=== PATIENT | female | born 1955 ===

== ENCOUNTER 2025-02-23 10:12 | Outpatient (AMB) | payer OTHER, SELFPAY ==
--- OUTSIDE RECORDS SUMMARY | 2025-02-18 15:00 | XMS_ITS | Encounter Summary ---
Author Organization [facility] Address [address] [place] [address] Care Team Providers Care Revenue Cycle Administrator Name Role Phone Doretha Fraga MD Primary Care Provider [phone] Reason for Visit * Consultation (Routine) - Authorized Specialty Diagnoses / Procedures Referred By Jessica juarez Referred To Contact Physical Therapy Diagnoses Chronic pain of both shoulders Doretha Fraga MD [address] [place] [phone] Phone: tel: fax: [address] [phone] Phone: tel: fax: Referral ID Status Reason Start Date Expiration Date Visits Requested Visits Authorized [id number] Authorized Specialty Services Required 01/16/2026 60 60 Encounter Details Date Type Department Care Team (Latest Contact Info) Description 02/18/2025 3:00 PM EST Evaluation [address] [phone] Caio Allen, PT Chronic pain of both shoulders Social History Tobacco Use Types Packs/Day Years Used Date Smoking Tobacco: Never Smokeless Tobacco: Never Alcohol Use Standard Drinks/Week Comments No 0 (1 standard drink = 0.6 oz pur e alcohol) Comments Unknown Sex and Gender Information Value Date Recorded Sex Assigned at Female 04/24/2024 1:52 AM EST Legal Sex Female 8:58 AM EST Gender Identity Female 04/24/2024 1:52 AM EST Sexual Orientation Straight 04/24/2024 1: 52 AM EST documented as of this encounter Progress Notes * Caio Allen, PT - 02/18/2025 3:00 PM EST [facility] - Outpatient PHYSICAL THERAPY EVALUATION Date: 02/18/2025 Visit Number: 1 Patient Name: Keila Gonzales : 1955 Age: 69 y.o. Gender: female Diagnosis: ICD-10-CM ICD-9-CM 1. Chronic pain of both shoulders M25.511 719.41 Ambulatory referral to Physical Therapy and Athletic Training G89.29 338.29 M25.512 Date of Onset/Surgery: 02/18/2025 Referring Provider: Doretha Fraga MD Insurance: Payor: [employer] / Plan: [employer] OPEN ACCESS SELECT / Product Type: *No Product type* / Patient identified by: Caio Allen, PT Language: Speaks and understands Kinyarwanda as preferred language with no aerial photograph interpreter required Chart Reviewed: Yes Medications: Medications Ordered Prior to Encounter[1] Discussed current medications that may impact therapy. Medication list obtained and reviewed. Referto document in medical record. Advised Patient to contact MD with any questions regarding medications and importance of managing medication information. has a past medical history of Allergic rhinitis (07/17/2018), Chronic knee pain (07/19/2017), GERD (gastroesophageal reflux disease) (07/19/2017), Hair loss (09/25/2017), History of migraine with aura (08/20/2015), Irritable bowel syndrome (07/19/2017), Pulmonary nodule (08/20/2015), Vitamin B12 deficiency (07/19/2017), and Vitamin D deficiency (07/19/2017). has a past surgical history that includes Other surgical history and Colonoscopy (02/20/2014). is allergic to naproxen. Precautions: Concurrent Services: No Concurrent Services Previous Medical Care/Therapy: SUBJECTIVE History of Present Illness/Subjective Report: Pt reports left shoulder pain for past 10 months. Onset of right shoulder pain for past month due to decreased use of LUE. Gradual onset, no known mechanism of injury. Pt states she has PMH of RA. To MD, no imaging. Pt received referral to PT to addressB shoulder pain Current Functional Limitations: Reported by Patient B shoulder pain with ADLs, minimal use of RUE and unable to use LUE with morning ADLs. Pt unable to find a comfortable sleep position due to B shoulder pain Is the patient at Risk for Falls: No Pain: Right shoulder 6/10, Left shoulder 10/10 Pain decreases with OTC pain medication, heat Home Environment: no barriers Prior Level of Function: Prior to onset of B shoulder pain pt was independent with ADLs without difficulty OBJECTIVE General Observations/Comments: Right hand dominant Vitals: There were no vitals filed for this visit. General/Functional Assessments/Gait Assessment: Posture: Forward head, rounded shoulders Palpation: TTP B upper trap, levator and throughout Left shoulder musculature Range of Motion: Shoulder PROM Right Left Flexion 165 150 with 5/10 ant shoulder ERP Extension 50 50 Abduction 150 90 with 5/10 ant shoulder ERP IR 65 65 with 5/10 upper arm ERP ER 80 80 with 5/10 upper arm ERP Strength: Shoulder Right Left Flexion 3/5 3-/5 with pain Extension 4/5 4/5 Abduction 3/5 3-/5 with pain IR 4/5 2/5 with pain ER 3+/5 2/5 with pain Elbow Flex 5/5 4/5 with shoulder pain Ext 5/5 5/5 TONE: WNL BUE Sensation: WNL BUE Vestibular: n/t Special Tests: Empty Can Test Positive Left and Speed's Test Positive Left TREATMENT INTERVENTION Modalities: None performed Procedures: None performed ASSESSMENT/Response to Treatment: Keila Gonzales is a 69 y.o. female presenting for outpatient physical therapy evaluation with complaints of B shoulder pain. Significant clinical findings include: decreased ROM and strength of leftshoulder, pain of B shoulders affecting ADLs and sleep pattern. Patients progress may be limited byn/a. Skilled Physical therapy is medically necessary to develop HEP and use of modalities to reducepain with ADL performance. Rehabilitation Potential: Rehab Potential: Condition Has Potential to Improve Motivation for Rehab: Good Support Structure: Good Learning Needs: Were Patient Learning needs assessed: Yes Learning Preferences: Explanation, Demonstration, and Printed Materials Barriers to Learning: No Barriers to Learning Patient Education: [x] Discussed, with patient and/or caregiver, the recommended plan of care/goals, the importance oftherapy and appointment compliance in order to achieve goals in a timely manner. Education provided: Plan of care Education Provided To: Patient utilizing Explanation as mode(s) of education. Response to Education: Verbal Understanding GOALS Goals Addressed This Visit's Progress PT LTGs Pt will increase left shoulder PROM to 75% WNL without pain for improved ADLs Pt will increase left shoulder strength to 3+/5 throughout without pain for improved ADLs Pt will report B shoulder pain no greater than 3/10 with morning ADL performance Pt will be independent with HEP PLAN POC Development/Review: Initial Evaluation; Participants: Patient Skilled Therapy Plan Required: YES- Reasons for Rehab and Medical Necessity -- Reduce Need for Assist with Functional Activity/ADL's/Mobility Planned Therapy Interventions: Kinesiotaping, Manual Therapy, Patient / Family Education, Therapeutic Activity, and Therapeutic Exercise Recommended Consults: none Equipment Recommended: none; Equipment Provided: none Frequency/Duration: 8 visits BILLING TOTAL TREATMENT TIME: 45 Minutes Evaluation Medium Complexity Justification ::: A history of present problem with 1 - 2 personal factors and/or co-morbidities that impact the plan of care, An examination of body systems using standardized tests and measures in addressing a total of 3 or more elements from any of the following bodystructures and functions, activity limitations, and/or participation restrictions, and Clinical decision making of moderate complexity using standardized patient assessment instrument and/or measurable assessment of functional outcome Documentation completed by Caio Allen, [place]CRET[place] [address] [address] Dept: [phone] Dept PATIENT NAME: Keila Gonzales : 1955 Certification: This is to certify that the above named patient, who is under my care, requires skilled Therapy services as described in the above treatment plan. I further certify that the services outlined in this plan are skilled and medically necessary. I have reviewed this plan for rehabilitation services, and I recommend that these services continue to meet the above stated goals and plan. SIGNATURE: DATE Doretha Fraga MD Referring provider [1] Current Outpatient Medications on File Prior to Visit Medication Sig Dispense Refill acetaminophen (TYLENOL) 500 mg tablet Take 1 tablet (500 mg total) by mouth every 6 (six) hours if needed. cholecalciferol (VITAMIN D-3) 50 mcg (2,000 unit) tablet Take 1 tablet (2,000 Units total) by mouth1 (one) time each day. diclofenac (VOLTAREN) 1 % topical gel Apply 1 g topically 4 times daily as needed (pain). dicyclomine (BENTYL) 10 mg capsule Take 1 Capsule by mouth 3 times daily. EPINEPHrine (EPIPEN) 0.3 mg/0.3 mL injection Inject 0.3 mL (0.3 mg total) into the thigh if needed for anaphylaxis. 1 each 0 famotidine (Pepcid) 20 mg tablet Take 1 tablet (20 mg total) by mouth 2 (two) times a day. 60 each 3 ibuprofen (ADVIL,MOTRIN) 600 mg tablet TK 1 T PO TID WITH FOOD loratadine (CLARITIN) 10 mg tablet Take 1 Tablet by mouth daily as needed for Allergies (itching). polyethylene glycol (MIRALAX) 17 gram packet Take 17 g by mouth daily. traMADoL (ULTRAM) 50 mg tablet Take 1 tablet (50 mg total) by mouth every 8 (eight) hours if needed. No current facility-administered medications on file prior to visit. documented in this encounter Plan of Treatment Upcoming Encounters Date Type Department Care Team (Late st Contact Info) Description 03/10/2025 1:30 PM EST Treatment [address] [phone] Masoud Abrams, CHEMICAL ENGINEER 03/12/2025 2:30 PM EST Treatment [address] [phone] Sinan Fine, REG 03/16/2025 1:30 PM EST Treatment [address] [phone] Sinan Fine, CHEMICAL ENGINEER 03/19/2025 1:30 PM EST Treatment [facility] [address] [phone] Caio Allen, PT 03/23/2025 1:30 PM EST Treatment [facility] [address] [phone] Caio Allen, PT 03/26/2025 1:30 PM EST Treatment [facility] [address] [phone] Masoud Abrams, CHEMICAL ENGINEER 03/30/2025 1:30 PM EST Treatment [facility] [address] [phone] Sinan Fine, CHEMICAL ENGINEER 04/02/2025 1:30 PM EST Treatment [facility] [address] [phone] Caio Allen, PT documented as of this encounter Goals Goal Patient Goal Type Associated Problems Recent Progress Patient-Stated? Author PT LTGs General No Caio Allen, PT Note: Pt will increase left shoulder PROM to 75% WNL without pain for improved ADLs Pt will increase left shoulder strength to 3+/5 throughout without pain for improved ADLs Pt will report B shoulder pain no greater than 3/10 with morning ADL performance Pt will be independent with HEP documented as of this encounter Visit Diagnoses Diagnosis Chronic pain of both shoulders documented in this encounter Orders Outpatient Referral Count Last Ordered Date Fir st Ordered Date AMB REFERRAL TO [facility]ICAL [facility] 1 02/18/2025 documented in this encounter Care Teams Revenue Cycle Administrator Relationship Specialty Start Date End Date Doretha Fraga MD [address] [phone] PCP - General Internal Medicine 02/22/18 documented as of this encounter
[2025-02-23 10:15] VITALS: BP 130/78; PULSE 104; O2SAT 98; BMI 25.2
--- NOTE | 2025-02-23 10:15 | A.OFFVIS_ITS ---
Vital Signs 02/23/25 10:15 Height 5 ft Weight 129 lb 2 oz BMI 25.2 BP 130/78 Blood Pressure Location Lt brachial Position Sitting Pulse 104 H Pulse Source Pulse Oximeter Pulse Oximetry (%) 98 Oxygen Delivery Method Room Air Intake Visit Reasons: IA Intake Note: Patient is a new patient, she was referred by her PCP Dr. Fraga from [facility] for inflammatory arthritis/psoriatic arthritis. 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 She has manage her psoriasis with the help of topical agents and cream. For past 7 years she has been having joint pain in the shoulders hands knees and neck. no back pain. She has noticed active synovitis in the knees and hands. She has no numbness and tingling. She also has morning stiffness that last 2 hours. She takes tyelnol arthritis as needed daily. She takes ibuprofen as needed, last dose 3 months ago She states she has been taking cortisone injections sometimes in the knee and sometimes IM depomedrol for generalized joint pain for the past 7 years. Then for 3 years she didnt have any prednsione therapy. Last year she had worsneing joint pain and then she received oral prednsione for 1 week and she felt better. She has not had a baseline DEXA scan done. She has seen Dr Hernandez who suspects she has Psoriatic arthrits / inflammatory arthritis. She was offered methotrexate however she declined as she was concerned about the side effects. She has been feeling nauseous, not feeling hungry, 14 pounds of weight loss, she has constipation,no blood in urine or blood in stool, she has been having night sweats. She had a CT chest abdomen and pelvis on 02/02/2025 which showed a 0.3 x 0.5 pulmonary nodule in the right middle lobe. Patient reports that she has known about this. Hepatic steatosis. Otherwise unremarkable exam Her last blood work showed white cell count of 12.9 hemoglobin 10.5 platelets 551 creatinine of 0.46 albumin of 2.6 ferritin of 309, AST ALT within normal limits ROS: no photosensitivy, no oral uclers, no miscarraige no blood clots,no dry eyes no dry mouth FH: SHE REPORTS HER MOTHER ALSO had rheumatoid arthritis PHYSICAL EXAM General: Comfortable CVS: RRR Respiratory: clear to auscultation bilaterally. Good respiratory effort Skin: She has psoriatic lesions seen on both elbows. MSK: Patient is able to make a fist bilaterally. Patient does not have any active synovitis in the joints. She has nontender DIPs. No [place] or also notes noted. She has some tenderness in the PIPs 3rd 4th 5th digits bilaterally. On exam, her hands look slightly osteopenic. 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 She has normal range of motion of the right shoulder however left shoulder has limited range of motion, painful on overhead abduction. She has limited range of motion of the hips bilaterally. Crepitus noted in both the knees on flexion and extension. Fibromyalgia tender points positive, particularly intra scapular, behind the knees, behind the elbows. Fibromyalgia tender points fibromyalgia tender points PFSH Medical History (Updated 02/23/25 @ 12:33 by Elizabeth Styles MD) Pulmonary nodule Chronic knee pain GERD (gastroesophageal reflux disease) IBS (irritable bowel syndrome) Vitamin B deficiency Vitamin D deficiency Hair loss Allergic rhinitis Migraine with aura Psoriatic arthritis Surgical History History of thyroglossal duct cyst removal Hx of colonoscopy Family History Sister Thyroid cancer Social History (Updated 02/23/25 @ 10:27 by Joanna Argueta CMA) Alcohol intake: current Alcohol intake frequency: does not drink Patient Tobacco Use Status: Never used Tobacco Physical Exam Vital Signs: Last Vital Signs Pulse 104 H 02/23/25 10:15 BP 130/78 02/23/25 10:15 Pulse Ox 98 02/23/25 10:15 Oxygen Delivery Method Room Air 02/23/25 10:15 BMI result Body Mass Index 25.2 Assessment & Plan Assessment & Plan (1) Joint pain: Code(s): M25.50 - Pain in unspecified joint Category: Medical Qualifiers: Joint pain location: unspecified Qualified Code(s): M25.50 - Pain in unspecified joint (2) Psoriasis: Code(s): L40.9 - Psoriasis, unspecified Category: Medical (3) On prednisone therapy: Code(s): Z79.52 - termite control 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 Based on her history, physical exam her joint pain may be inflammatory in nature, likely inflammatory arthritis/psoriatic arthritis. She may also have a component of fibromyalgia that is superimposed given her positive tender points on exam. I will obtain blood work, including ESR CRP RF CCP thyroid function studies, along with hepatitis-B C profile and QuantiFERON to further classify inflammatory arthritis and in preparation to start any DMARD if needed. I will also obtain imaging bilateral hand x-rays, shoulder x-rays and knee x-rays. As patient has had series of prednisone courses I will also obtain a DEXA scan I had a discussion with her regarding the use of methotrexate for inflammatory arthritis versus prednisone. It seems to me that patient is very hesitant to use methotrexate and is leaning more towards prednisone as she is scared of the side effects. I did reinforce that prednisone has more side effect profile as compared to methotrexate and is relatively safe to use with regular monitoring. Handouts were provided for fibromyalgia, DMARD and psoriatic arthritis. Regarding fibromyalgia Discussed management of fibromyalgia with patient. Is a noninflammatory, non-autoimmune central afferent processing disorder leading to a diffuse pain syndrome. I suggested that patient try to address her underlying psychiatric issues, anxiety/depression. Try to follow sleep hygiene practices. Patient would benefit from increased physical activity, either through formal physical therapy or by joining a gym. Advised patient that she should start activity slowly and increase as tolerated. Consider low-impact exercises such as walking, swimming, aqua therapy stretching, yoga. With regards to the limited left shoulder motion and left shoulder pain, she is due to start physical therapy in the shoulder beginning March. Follow up in 3 weeks to discuss blood work and results Orders: Orders XR Shoulder Nicolas min 2V Today M25.50 - Pain in unspecified joint XR Hand Nicolas 2V Today M25.50 - Pain in unspecified joint C Reactive Protein Today R76.0 - Raised antibody titer Rheumatoid Factor Today R76.0 - Raised antibody titer Thyroid Stimulating Hormone Today R76.0 - Raised antibody titer Protein Electrophoresis, Serum Today M25.50 - Pain in unspecified joint XR Knee Nicolas 1or 2V Today M25.50 - Pain in unspecified joint Erythrocyte Sedimentation Rate Today R76.0 - Raised antibody titer Cyclic Citrullinated Peptide Today R76.0 - Raised antibody titer Thyroglobulin Antibodies Today R76.0 - Raised antibody titer Thyroid Peroxidase Antibodies Today R76.0 - Raised antibody titer Immunofixation Pnl, Serum Today L40.9 - Psoriasis, unspecified, M25.50 - Pain in unspecified joint XR DEXA axial skeleton Today M25.50 - Pain in unspecified joint, Z79.52 - termite control representative (current) use of systemic steroids Hepatitis B,C Profile Today Z79.899 - Other terminal system operator (current) drug therapy Quantiferon TB Gold Plus 1 Today Z79.899 - Other terminal system operator (current) drug therapy Coding Level of Care Code New Pt Level 4 (10560) Diagnoses Arthralgia, unspecified joint M25.50 Joint pain location: unspecified Psoriasis L40.9 On prednisone therapy Z79.52
--- OUTSIDE RECORDS SUMMARY | 2025-02-23 12:19 | XMS_ITS | Clinical Summary ---
Author Organization [facility] Address [address] [place] [phone] Phone Care Team Providers Care White Sourer Name Role Phone Doretha Fraga MD Primary Care Provider [phone] Allergies Active Allergy Reactions Criticality Noted Date Comments Naproxen 02/15/2012 Medications acetaminophen (TYLENOL) 500 mg tablet Take 1 tablet (500 mg total) by mouth every 6 (six) hours if needed. 4 Active cholecalciferol (VITAMIN D-3) 50 mcg (2,000 unit) tablet Take 1 tablet (2,000 Units total) by mouth 1 (one) time each day. 3 Active diclofenac (VOLTAREN) 1 % topical gel Apply 1 g topically 4 times daily as needed (pain). 4 Active dicyclomine (BENTYL) 10 mg capsule Take 1 Capsule by mouth 3 times daily. 4 Active loratadine (CLARITIN) 10 mg tablet Take 1 Tablet by mouth daily as needed for Allergies (itching). 4 Active traMADoL (ULTRAM) 50 mg tablet Take 1 tablet (50 mg total) by mouth every 8 (eight) hours if needed. 4 Active polyethylene glycol (MIRALAX) 17 gram packet Take 17 g by mouth daily. 2 Active ibuprofen (ADVIL,MOTRIN) 600 mg tablet TK 1 T PO TID WITH FOOD 9 Active EPINEPHrine (EPIPEN) 0.3 mg/0.3 mL injection Inject 0.3 mL (0.3 mg total) into the thigh if needed for anaphylaxis. 1 each 5 Active famotidine (Pepcid) 20 mg tablet Take 1 tablet (20 mg total) by mouth 2 (two) times a day. 60 each 3 5 Active Active Problems Problem Noted Date Diagnosed Date Psoriatic arthritis 01/16/2025 Migraine with aura 08/19/2024 Allergic rhinitis 07/17/2018 Hair loss 09/25/2017 Vitamin D deficiency 07/19/2017 Vitamin B12 deficiency 07/19/2017 Irritable bowel syndrome 07/19/2017 GERD (gastroesophageal reflux disease) 8 Chronic knee pain 07/19/2017 Pulmonary nodule 08/20/2015 Encounters Date Type Department Care Team Description 02/18/2025 3:00 PM EST Evaluation [facility] - [employer] 175 [facility] [address] [place] [phone] Caio Allen, PT Chronic pain of both shoulders 02/04/2025 Telephone Internal Medicine - [employer] [address] [facility] [address] [place] [phone] Doretha Fraga MD 01/22/2025 1:56 PM EST - 01/22/2025 11:59 PM EST Hospital Encounter CT Scan - [address] [phone] Other fatigue; Weight loss; Appetite loss; Nausea and vomiting, unspecified vomiting type Discharge Disposition: Home or Self Care 01/20/2025 Results Follow-Up Internal Medicine - [address] [place] [phone] Doretha Fraga MD 01/19/2025 10:05 AM EST Lab Draw Station - [address] [place] [address] [address] [place] [phone] Anemia, unspecified type; Psoriatic arthritis (CMS/HCC V24, CMS/HCC V28); Adult general medical examination; Other fatigue; Weight loss; Appetite loss 01/16/2025 11:30 AM EST Office Visit Internal Medicine - [address] [place] [address] Doretha Fraga MD Adult general medical examination (Primary Dx); Psoriatic arthritis (CMS/HCC V24, CMS/HCC V28); Other fatigue; Weight loss; Appetite loss; Nausea and vomiting, unspecified vomiting type; Chronic pain of both shoulders; Postmenopausal state; Inflammatory arthritis from Last 3 Months Surgical History Surgery Date Site/Laterality Comments OTHER SURGICAL HISTORY PROCEDURE: HISTORY OTHER; COMMENT: thyroglossal duct excision COLONOSCOPY 02/20/2014 PROCEDURE: HISTORICAL COLONOSCOPY; COMMENT: repeat 10 years Medical History Medical History Date Comments Chronic knee pain 07/19/2017 DX:Chronic kne e pain GERD (gastroesophageal reflux disease) 07/19/2017 DX:GERD (gastroesophageal reflux disease) Hair loss 09/25/2017 DX:Hair loss History of migraine with aura 08/20/2015 DX :History of migraine with aura Irritable bowel syndrome 07/19/2017 DX:Irri table bowel syndrome Pulmonary nodule 08/20/2015 DX:Pulmonary no dule Vitamin B12 deficiency 07/19/2017 DX:Vitami n B12 deficiency Vitamin D deficiency 07/19/2017 DX:Vitamin D deficiency Allergic rhinitis 07/17/2018 DX:Allergic rh initis Family History Medical History Relation Name Comments Other: thyroid cancer Sister Relation Name Status Comments Sister Social History Tobacco Use Types Packs/Day Years [...] Orientation Straight 04/24/2024 1: 52 AM EST Last Filed Vital Signs Vital Sign Reading Time Taken Comments Blood Pressure 109/70 01/16/2025 11:33 AM EST Pulse 102 01/16/2025 11:33 AM EST Temperature 36.4 C (97.5 F) 01/16/2025 11:33 AM EST Respiratory Rate 18 01/16/2025 11:33 AM EST Oxygen Saturation 97% 01/16/2025 11:33 AM EST Inhaled Oxygen Concentration - - Weight 56.2 kg (124 lb) 01/16/2025 11:33 AM EST Height 152.4 cm (5') 01/16/2025 11:33 AM EST Body Mass Index 24.22 01/16/2025 11:33 AM EST Plan of Treatment Upcoming Encounters Date Type Department Care Team (Late st Contact Info) Description 03/10/2025 1:30 PM EST Treatment [address] [phone] Masoud Abrams, SENIOR ENGINEERING ASSOCIATE 03/12/2025 2:30 PM EST Treatment [address] [phone] Sinan Fine, SENIOR ENGINEERING ASSOCIATE 03/16/2025 1:30 PM EST Treatment [address] [phone] Sinan Fine, SENIOR ENGINEERING ASSOCIATE 03/19/2025 1:30 PM EST Treatment [address] [phone] Caio Allen, PT 03/23/2025 1:30 PM EST Treatment [address] [phone] Caio Allen, PT 03/26/2025 1:30 PM EST Treatment [address] [phone] Masoud Abrams, SENIOR ENGINEERING ASSOCIATE 03/30/2025 1:30 PM EST Treatment [address] [phone] Sinan Fine, SENIOR ENGINEERING ASSOCIATE 04/02/2025 1:30 PM EST Treatment [address] [phone] Caio Allen, PT Health Maintenance Due Date Last Done Comments DTaP,Tdap,and Td Vaccines (1 - Tdap) 1976 Pneumococcal Vaccine: 50+ Years (1 of 1 - PCV) 2007 Zoster Vaccines (1 of 2) 2007 Hepatitis C Screening 02/11/2022 Osteoporosis Screening (Bone Density Screening) 02/11/2022 Social Influencers of Health Screening 02/11/2022 Falls Risk Assessment 2022 Depression Screening 03/05/2024 COVID-19 Vaccine (3 - 2024-2 6 season) 2024 08/27/2020, 08/06/2020 Influenza Vaccine (#1) 2024 3, 11/25/2019 Breast Cancer Screening 02/05/2027 02/06/20, 05/11/2023 Colorectal Cancer Screening: Colonoscopy 01/05/2030 01/06/2020 Cholesterol Screening (Lipid Panel) 01/19/2030 01/19/2025, 04/12/2023 RSV Immunization Adult Patients (1 - 1-dose 75+ series) 2032 HIB Vaccines Aged Out No longer eligi ble based on patient's age to complete this topic HPV Vaccines Aged Out No longer eligi ble based on patient's age to complete this topic Hepatitis A Vaccines Aged Out No long er eligible based on patient's age to complete this topic Hepatitis B Vaccines Aged Out No long er eligible based on patient's age to complete this topic IPV Vaccines Aged Out No longer eligi ble based on patient's age to complete this topic MMR Vaccines Aged Out No longer eligi ble based on patient's age to complete this topic Meningococcal ACWY Vaccine Aged Out N o longer eligible based on patient's age to complete this topic Meningococcal B Vaccine Aged Out No l onger eligible based on patient's age to complete this topic RSV Immunization Patients Under 20 months Aged Out No longer eligible b ased on patient's age to complete this topic Varicella Vaccines Aged Out No longer eligible based on patient's age to complete this topic Goals Goal Patient Goal Type Associated Problems [...] performance Pt will be independent with HEP Procedures Procedure Name Priority Date/Time Associated Diagnosis Comments EXTERNAL MAMMOGRAM REPORT 02/05/2025 EXTERNAL ULTRASOUND REPORT 02/05/2025 CT CHEST/ABDOMEN/PELVIS W CONTRAST Routine 01/22/2025 2:15 PM EST Other fatigue Weight loss Appetite loss Nausea and vomiting, unspecified vomiting type CBC WITH AUTO DIFFERENTIAL Routine 01/19/2025 10:02 AM EST Anemia, unspecified type VITAMIN B12 Routine 01/19/2025 10:02 AM EST Psoriatic arthritis (CMS/HCC V24, CMS/HCC V28) Adult general medical examination Other fatigue Weight loss Appetite loss THYROID STIMULATING HORMONE Routine 01/19/2025 10:02 AM EST Psoriatic arthritis (CMS/HCC V24, CMS/HCC V28) Adult general medical examination Other fatigue Weight loss Appetite loss LIPID PANEL WITH REFLEX TO DIRECT LDL Routine 01/19/2025 10:02 AM EST Psoriatic arthritis (CMS/HCC V24, CMS/HCC V28) Adult general medical examination Other fatigue Weight loss Appetite loss COMPREHENSIVE METABOLIC PANEL Routine 01/19/2025 10:02 AM EST Psoriatic arthritis (CMS/HCC V24, CMS/HCC V28) Adult general medical examination Other fatigue Weight loss Appetite loss HEMOGLOBIN A1C Routine 01/19/2025 10:02 AM EST Psoriatic arthritis (CMS/HCC V24, CMS/HCC V28) Adult general medical examination Other fatigue Weight loss Appetite loss FERRITIN Routine 01/19/2025 10:02 AM EST Anemia, unspecified type CBC AND DIFFERENTIAL Routine 01/19/2025 10:02 AM EST Anemia, unspecified type HM COLONOSCOPY Routine 01/06/2020 from Last 3 Months or Most Recently Relevant to Health Maintenance Results * External Ultrasound Report (02/05/2025) Anatomical Region Laterality Modality Ultrasound us Provider [facility] IMG US PROCEDURES Final Result * External Mammogram Report (02/05/2025) Anatomical Region Laterality Modality [facility]ography [facility] BI PROCEDURES Final Result * CT Chest/Abdomen/Pelvis w Contrast (01/22/2025 2:15 PM EST) Anatomical Region Laterality Modality Body Computed Tomogra phy 02/02/2025 5:37 PM EST Impressions 02/02/2025 5:54 PM EST 0.3 x 0.5 cm pulmonary nodule right middle lobe. Hepatic steatosis. Otherwise, unremarkable exam. No follow-up needed if patient is low-risk. Non-contrast chest CT can be considered in 12 months if patient is high-risk (Per Fleischner Society guidelines). There has been resolution of the raul mesentery seen on the previous study. There has also been resolution of the azygoesophageal recess and right infrahilar lymphadenopathy seen in the previous study. -------- FINAL REPORT -------- Dictated By: Poppy Perez Dictated Date: 02/02/2025 17:37 ET Assigned Physician: Poppy Perez Reviewed and Electronically Signed By: Poppy Perez Signed Date: 02/02/2025 17:54 ET Workstation ID: [id number] Transcribed By: Self Edit Transcribed Date: 02/02/2025 17:37 ET Narrative 02/02/2025 5:[address] CHEST/ABDOMEN/PELVIS W CONTRAST History: Weight loss. Loss of appetite. Procedure: Multiple axial images are obtained from ischial tuberosities to the thoracic inlet. Oral and IV contrast is administered. 100 cc Isovue-370 was administered IV. Prior studies: CT abdomen pelvis 06/10/2020. FINDINGS: CHEST: There is a 0.3 x 0.5 cm pulmonary nodule in the right middle lobe on image 120, and this was partially visualized on the first image of the previous study. There are groundglass opacities in the lower lobes bilaterally, this may represent dependent atelectasis. There is unchanged focal scarring in the lateral right middle lobe. There is no pleural effusion, pericardial effusion, or pneumothorax. There is no mediastinal, hilar, or axillary lymphadenopathy. No lytic or blastic lesions are seen in the bony thorax. ABDOMEN/PELVIS: There is decreased attenuation of the liver compared with the spleen, consistent with fatty infiltration. The kidneys, and spleen are grossly unremarkable. The pancreas is grossly unremarkable in appearance. The gallbladder is present. The gastrointestinal tract is unremarkable. The aorta is normal in caliber. There is mild atherosclerosis. The uterus and ovaries are unremarkable. The bladder is suboptimally distended. There is mild curvature and degenerative change of the spine. Procedure Note Poppy Perez MD - 02/02/2025 CT CHEST/ABDOMEN/PELVIS W CONTRAST History: Weight loss. Loss of appetite. Procedure: Multiple axial images are obtained from ischial tuberosities tothe thoracic inlet. Oral and IV contrast is administered. 100 ccIsovue-370 was administered IV. Prior studies: CT abdomen pelvis 06/10/2020. FINDINGS: CHEST: There is a 0.3 x 0.5 cm pulmonary nodule in the right middle lobeon image 120, and this was partially visualized on the first image of theprevious study. There are groundglass opacities in the lower lobesbilaterally, this may represent dependent atelectasis. There is unchangedfocal scarring in the lateral right middle lobe. There is no pleuraleffusion, pericardial effusion, or pneumothorax. There is no mediastinal,hilar, or axillary lymphadenopathy. No lytic or blastic lesions are seenin the bony thorax. ABDOMEN/PELVIS: There is decreased attenuation of the liver compared withthe spleen, consistent with fatty infiltration. The kidneys, and spleenare grossly unremarkable. The pancreas is grossly unremarkable inappearance. The gallbladder is present. The gastrointestinal tract isunremarkable. The aorta is normal in caliber. There is mildatherosclerosis. The uterus and ovaries are unremarkable. The bladder issuboptimally distended. There is mild curvature and degenerative change ofthe spine. IMPRESSION: 0.3 x 0.5 cm pulmonary nodule right middle lobe. Hepatic steatosis.Otherwise, unremarkable exam. No follow-up needed if patient is low-risk.Non-contrast chest CT can be considered in 12 months if patient ishigh-risk (Per Fleischner Society guidelines). There has been resolution of the raul mesentery seen on the previousstudy. There has also been resolution of the azygoesophageal recess andright infrahilar lymphadenopathy seen in the previous study. -------- FINAL REPORT -------- Dictated By: Poppy Perez Dictated Date: 02/02/2025 17:37 ET Assigned Physician: Poppy Perez Reviewed and Electronically Signed By: Poppy Perez Signed Date: 02/02/2025 17:54 ET Workstation ID: [id number] Transcribed By: Self Edit Transcribed Date: 02/02/2025 17:37 ET us Doretha Fraga MD IMG CT PROCEDURES Final Result * Lipid panel with reflex to direct LDL (01/19/2025 10:02 AM EST) Cholesterol 118 0 - 200 mg/dL LAB CHEMISTRY METHOD 01/19/2025 4:17 PM EST [facility] Triglycerides 67 0 - 150 mg/dL LAB CHEMISTRY METHOD 01/19/2025 4:17 PM [facility] HDL 40 >=40 mg/dL LAB CHEMISTRY METHOD 01/19/2025 4:17 PM EST [facility] LDL Calculated 65 0 - 100 mg/dL LAB CHEMISTRY METHOD 01/19/2025 4:17 PM EST [facility] Comment:Estimated LDL Calcul ated using equation: Total cholesterol - HDL cholesterol - (Triglycerides/5) VLDL Cholesterol Atif 13.4 mg/dL LAB CHEMISTRY METHOD 01/19/2025 4:17 PM [facility] Non HDL Chol. (LDL+VLDL) 78 <145 mg/dL LAB CHEMISTRY METHOD 01/19/2025 4:17 PM [facility] Chol/HDL Ratio 3.0 0.0 - 4.4 LAB CHEMISTRY METHOD 01/19/2025 4:17 PM [facility] Blood Venous blood specimen / Unknown Venipuncture / Unknown 01/19/2025 10:02 AM EST 01/19/2025 10:02 AM EST us Doretha Fraga MD LAB BLOOD ORDERABLES Final Res ult [facility] [address] [place] [address], * (ABNORMAL) CBC auto differential (01/19/2025 10:02 AM EST) [facility] WBC 12.9(H) 4.8 - 10.8 K/mcL LAB HEMETOLOGY METHOD 01/19/2025 2:19 PM [facility] RBC 5.10(H) 3.80 - 4.80 M/mcL LAB HEMETOLOGY METHOD 01/19/2025 2:19 PM [facility] Hemoglobin 10.5(L) 11.5 - 16.0 g/dL LAB HEMETOLOGY METHOD 01/19/2025 2:19 PM [facility] Hematocrit 36.7 35.0 - 47.0 % LAB HEMETOLOGY METHOD 01/19/2025 2:19 PM [facility] MCV 71.5(L) 79.0 - 98.0 FL LAB HEMETOLOGY METHOD 01/19/2025 2:19 PM [facility] MCH 20.5(L) 27.0 - 32.0 pcg LAB HEMETOLOGY METHOD 01/19/2025 2:19 PM [facility] MCHC 28.6(L) 32.0 - 37.0 g/dL LAB HEMETOLOGY METHOD 01/19/2025 2:19 PM [facility] RDW 19.6(H) 11.0 - 15.0 % LAB HEMETOLOGY METHOD 01/19/2025 2:19 PM [facility] Platelets 551(H) 130 - 400 K/mcL LAB HEMETOLOGY METHOD 01/19/2025 2:19 PM [facility] MPV 9.8 7.0 - 11.0 FL LAB HEMETOLOGY METHOD 01/19/2025 2:19 PM [facility] NRBC 0.0 <1.0 % LAB HEMETOLOGY METHOD 01/19/2025 2:19 PM [facility] NRBC Absolute 0.00 <0.10 K/mcL LAB HEMETOLOGY METHOD 01/19/2025 2:19 PM [facility] Neutrophils Relative 65.6 % LAB HEMETOLOGY METHOD 01/19/2025 2:19 PM [facility] Lymphocytes Relative 21.8 % LAB HEMETOLOGY METHOD 01/19/2025 2:19 PM [facility] Monocytes Relative 9.6 % LAB HEMETOLOGY METHOD 01/19/2025 2:19 PM [facility] Eosinophils Relative 1.2 % LAB HEMETOLOGY METHOD 01/19/2025 2:19 PM [facility] Basophils Relative 1.2 % LAB HEMETOLOGY METHOD 01/19/2025 2:19 PM [facility] Immature Granulocytes Relative 0.6 % LAB HEMETOLOGY METHOD 01/19/2025 2:19 PM [facility] Neutrophils Absolute 8.43(H) 1.50 - 7.00 K/mcL LAB HEMETOLOGY METHOD 01/19/2025 2:19 PM [facility] Lymphocytes Absolute 2.80 1.00 - 5.00 K/mcL LAB HEMETOLOGY METHOD 01/19/2025 2:19 PM [facility] Monocytes Absolute 1.24(H) 0.20 - 1.00 K/mcL LAB HEMETOLOGY METHOD 01/19/2025 2:19 PM [facility] Eosinophils Absolute 0.16 0.00 - 0.50 K/mcL LAB HEMETOLOGY METHOD 01/19/2025 2:19 PM [facility] Basophils Absolute 0.16 0.00 - 0.20 K/mcL LAB HEMETOLOGY METHOD 01/19/2025 2:19 PM [facility] Immature Granulocytes Absolute 0.08(H) 0.00 - 0.03 K/mcL LAB HEMETOLOGY METHOD 01/19/2025 2:19 PM EST [facility] Blood Venous blood specimen / Unknown Venipuncture / Unknown 01/19/2025 10:02 AM EST 01/19/2025 10:02 AM EST us Doretha Fraga MD LAB BLOOD ORDERABLES Final Res ult [facility] [address] [place] [address], [place] [phone] * Thyroid stimulating hormone (01/19/2025 10:02 AM EST) Pathologist [facility] [place] TSH 1.82 0.40 - 4.00 mcIU/mL LAB CHEMISTRY METHOD 01/19/2025 4:42 PM EST [facility] Blood Venous blood specimen / Unknown Venipuncture / Unknown 01/19/2025 10:02 AM EST 01/19/2025 10:02 AM EST us Doretha Fraga MD LAB BLOOD ORDERABLES Final Res ult [facility] [address] [place] [address], [place] [phone] * Hemoglobin A1c (01/19/2025 10:02 AM EST) Hemoglobin A1C 6.3 <6.5 % LAB CHEMISTRY METHOD 01/19/2025 9:02 PM EST [facility] Mean Bld Glu Estim. 134 mg/dL LAB CHEMISTRY METHOD 01/19/2025 9:02 PM EST [facility] Blood Venous blood specimen / Unknown Venipuncture / Unknown 01/19/2025 10:02 AM EST 01/19/2025 10:02 AM EST Doretha Fraga MD LAB BLOOD ORDERABLES Final Res ult Performing Organization Address [facility]/ZIP Co de Phone Number [facility] [address] [place] [address], [place] [phone] * (ABNORMAL) Ferritin (01/19/2025 10:02 AM EST) Pathologist [facility] [place] Ferritin 309(H) 8 - 252 ng/mL LAB CHEMISTRY METHOD 01/19/2025 4:17 PM EST [facility] Blood Venous blood specimen / Unknown Venipuncture / Unknown 01/19/2025 10:02 AM EST 01/19/2025 10:02 AM EST Doretha Fraga MD LAB BLOOD ORDERABLES Final Res ult Performing Organization Address [facility] Co de Phone Number [facility] [address] [place] [address], [place] [phone] * Vitamin B12 (01/19/2025 10:02 AM EST) [facility] Vitamin B-12 374 250 - 900 pcg/mL LAB CHEMISTRY METHOD 01/19/2025 4:17 PM EST [facility] Blood Venous blood specimen / Unknown Venipuncture / Unknown 01/19/2025 10:02 AM EST 01/19/2025 10:02 AM EST Doretha Fraga MD LAB BLOOD ORDERABLES Final Res ult Performing Organization Address City/[facility]/ZIP Co de Phone Number [facility] [address] [place] [address], [place] [phone] * (ABNORMAL) Comprehensive metabolic panel (01/19/2025 10:02 AM EST) [facility] Sodium 138 133 - 145 mmol/L LAB CHEMISTRY METHOD 01/19/2025 4:17 PM EST [facility] Potassium 4.5 3.5 - 5.5 mmol/L LAB CHEMISTRY METHOD 01/19/2025 4:17 PM [facility] Chloride 105 96 - 110 mmol/L LAB CHEMISTRY METHOD 01/19/2025 4:17 PM [facility] CO2 27 21 - 32 mmol/L LAB CHEMISTRY METHOD 01/19/2025 4:17 PM [facility] Anion Gap 6 3 - 11 LAB CHEMISTRY METHOD 01/19/2025 4:17 PM [facility] Glucose 96 70 - 100 mg/dL LAB CHEMISTRY METHOD 01/19/2025 4:17 PM [facility] BUN 11 5 - 25 mg/dL LAB CHEMISTRY METHOD 01/19/2025 4:17 PM [facility] Creatinine 0.46(L) 0.50 - 1.10 mg/dL LAB CHEMISTRY METHOD 01/19/2025 4:17 PM [facility] eGFR 105 >=60 mL/min/1. 73m2 LAB CHEMISTRY METHOD 01/19/2025 4:17 PM [facility] Comment:Calculation based on the Chronic Kidney Disease Epidemiology Collaboration (CKD-EPI) equation refit without adjustment for race. BUN/Creatinine Ratio 23.9 LAB CHEMISTRY METHOD 01/19/2025 4:17 PM [facility] Calcium 9.5 8.5 - 10.5 mg/dL LAB CHEMISTRY METHOD 01/19/2025 4:17 PM [facility] AST (SGOT) 18 10 - 42 unit/L LAB CHEMISTRY METHOD 01/19/2025 4:17 PM [facility] ALT (SGPT) 38 10 - 60 unit/L LAB CHEMISTRY METHOD 01/19/2025 4:17 PM [facility] Alkaline Phosphatase 98 42 - 121 unit/L LAB CHEMISTRY METHOD 01/19/2025 4:17 PM [facility] Total Protein 7.5 6.0 - 8.0 g/dL LAB CHEMISTRY METHOD 01/19/2025 4:17 PM [facility] Albumin 2.6(L) 3.2 - 5.0 g/dL LAB CHEMISTRY METHOD 01/19/2025 4:17 PM EST [facility] Total Bilirubin 0.3 0.0 - 1.4 mg/dL LAB CHEMISTRY METHOD 01/19/2025 4:17 PM EST [facility] Blood Venous blood specimen / Unknown Venipuncture / Unknown 01/19/2025 10:02 AM EST 01/19/2025 10:02 AM EST Doretha Fraga MD LAB BLOOD ORDERABLES Final Res ult [facility] [address] [place] [address], [place] [phone] * Colonoscopy (01/06/2020) Colonoscopy No interpretation , abstracted Anatomical Region Laterality Modality Other Historical Provider HEALTH MAINTENANCE Final Result from Last 3 Months or Most Recently Relevant to Health Maintenance Insurance [employer] Care Teams [place] Relationship Specialty Start Date End Date Doretha Fraga MD [address] [phone] PCP - General Internal Medicine 02/22/18
--- OUTSIDE RECORDS SUMMARY | 2025-02-23 12:19 | XMS_ITS | Encounter Summary ---
Author Organization [facility] Address [address] [place] [address] Care Team Providers Care Manager Program Name Role Phone Doretha Fraga MD Primary Care Provider [phone] Encounter Details Date Type Department Care Team (Late st Contact Info) Description 01/20/2025 Results Follow-Up Internal Medicine [facility] 175 [facility] [address] [place] [phone] Doretha Fraga MD [address] [place] [phone] Social History Tobacco Use Types Packs/Day Years [...] AM EST documented as of this encounter Plan of Treatment Upcoming Encounters Date Type Department Care Team (Late st Contact Info) Description 03/10/2025 1:30 PM EST Treatment [facility] [address] [phone] Masoud Abrams, CHIEF AIRLINE RADIO OPERATOR 03/12/2025 2:30 PM EST Treatment [facility] [address] [phone] Sinan Fine, REG 03/16/2025 1:30 PM EST Treatment [facility] [address] [phone] Sinan Fine, CHIEF AIRLINE RADIO OPERATOR 03/19/2025 1:30 PM EST Treatment [facility] [address] [phone] Caio Allen, PT 03/23/2025 1:30 PM EST Treatment [facility] [address] [phone] Caio Allen, PT 03/26/2025 1:30 PM EST Treatment [facility] [address] [phone] Masoud Abrams, CHIEF AIRLINE RADIO OPERATOR 03/30/2025 1:30 PM EST Treatment [facility] [address] [phone] Sinan Fine, CHIEF AIRLINE RADIO OPERATOR 04/02/2025 1:30 PM EST Treatment [facility] [address] [phone] Caio Allen, PT documented as of this encounter Visit Diagnoses Not on filedocumented in this encounter Care Teams Manager Program Relationship Specialty Start Date End Date Doretha Fraga MD [address] [phone] PCP - General Internal Medicine 02/22/18 documented as of this encounter
--- OUTSIDE RECORDS SUMMARY | 2025-02-23 12:19 | XMS_ITS | Patient Health Record ---
Author Organization [facility] Address [address] [place] [address] Care Team Providers Care Warehouse Associate Name Role Phone BETHANIE LEONARD, [facility] Primary Care Provider Unavailab OMAR Anne Unavailable [phone] Allergies Allergen (clinical drug ingredient) Drug/Non Drug Allergy documented on EMR Reaction Allergy Type Onset Date Status naproxen Naprosyn stomach upset Drug Allergy Act chris Reason For Referral No Information Medications Medication SIG (Take, Route, Frequency, Duration) Notes Start Date End Date Status Dicyclomine HCl 10 MG Capsule 2 capsules Orally Three times a day as needed Active Magnesium 200 MG Tablet 1 tab po once daily Active Vitamin B Complex - Tablet 1 tab po once daily Active Ibuprofen 800 MG Tablet 1 tab(s) orally 3 times a day as needed Active Vitamin D 50 MCG (2000 UT) Capsule 1 orally once a day Active Omeprazole 20 MG Capsule Delayed Release 1 cap(s) orally once a day as needed Active Social History Tobacco Use: Social History Observation Description Date Details (start date - stop date) Never Smoker NA - NA Social History Tobacco Use: Social Info Question Answer Notes Smoking Are you a: never smoker Additional Details Category Social Info Options Details 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 alcohol use: no drug use: no Coffee/Tea/Soda: yes 2 cups of coffe e daily, tea daily 2 cups, no soda Marital Status smokers in household no Problems Problem Type SNOMED Code ICD Code Onset Dates Problem Status W/U Status Risk Notes Problem Primary osteoarthritis (713725804) Primary osteoarthritis involving multiple joints (M15.0) Active confirmed Problem Inflammatory arthritis (4031731) Inflammatory arthritis (M19.90) Active confirmed Problem Osteoarthritis of knee (358815404) Primary osteoarthritis of right knee (M17.11) Active confirmed Problem Osteoarthritis of knee (494813476) Primary osteoarthritis of left knee (M17.12) Active confirmed Plan Of Treatment No Information Insurance Providers Payer Name Payer Address Payer Phone Subscriber Number Group Number Insured Name Patient Relationship to Insured Coverage Start Date Coverage End Date [employer] [facility] [address] [place] [address] [id number] ROSITA BENJAMIN Self - patient is the insured 9 Medications Administered Medication Instructions Date of Administration Dosage Notes Triamcinolone Acetonide, mul ti-dose vial, 12/08/2019 60 mg Triamcinolone Acetonide, mul ti-dose vial, 06/08/2020 60 mg Triamcinolone Acetonide, mul ti-dose vial, 12/08/2021 60 mg Medical (General) History Medical History History ICD Code migraines rash osteoarthritis Surgical History Surgery Date(Month/Year) thyroglossal cyst endometrial polyp removal Hospitalization History Reason Date(Month/Year) pain in joints inflammation and high fev [facility] ([facility] 2018
--- OUTSIDE RECORDS SUMMARY | 2025-02-23 12:19 | XMS_ITS | Encounter Summary ---
Author Organization [facility] Address [address] [place] [address] Care Team Providers Care Elevating Grader Operator Name Role Phone Doretha Fraga MD Primary Care Provider [phone] Reason for Referral * Imaging (Routine) - Authorized Specialty Diagnoses / Procedures Referred By Jessica juarez Referred To Contact Radiology Diagnoses Mammogram abnormal Procedures US Breast Limited bilat Doretha Fraga MD [address] [place] [address] Phone: tel: fax: External Performed Referral ID Status Reason Start Date Expiration Date V isits Requested Visits Authorized [id number] Authorized 02/05/2025 02/05/2026 1 1 Reason for Visit * Reason Onset Date Comments Ultrasound order request 02/04/2025 Encounter Details Date Type Department Care Team (Late st Contact Info) Description 02/04/2025 Telephone Internal Medicine - [place] [address] [facility] [address] [place] [address] Doretha Fraga MD [address] [place] [address] Social History Tobacco Use Types Packs/Day [...] as of this encounter Progress Notes * Sherrie Betancur MA - 02/05/2025 8:49 AM EST Order faxed to number provided * Doretha Fraga MD - 02/05/2025 8:14 AM EST Order placed * Jerry Oscar MA - 02/04/2025 10:12 AM EST Please advise patient has appt tomorrow 02/05 needs diagnostic ultrasound of left breast 6 month follow up * Fabiola Lincoln - 02/04/2025 9:18 AM EST [facility] breast [facility] wellness called and stated that the pt has a appt tomorrow for a diagnostic ultrasound of left breast 6 month follow up but they do not have a order for her. Please advise Cb# [phone] documented in this encounter Plan of Treatment Upcoming Encounters Date Type Department Care Team (Late st Contact Info) Description 03/10/2025 1:30 PM EST Treatment [facility] [address] [address] Masoud Abrams, PROBATION COUNSELOR 03/12/2025 2:30 PM EST Treatment [facility] [address] [address] Sinan Fine, REG 03/16/2025 1:30 PM EST Treatment [facility] [address] [phone] Sinan Fine, PROBATION COUNSELOR 03/19/2025 1:30 PM EST Treatment [facility] [address] [phone] Caio Allen, PT 03/23/2025 1:30 PM EST Treatment [facility] [address] [phone] Caio Allen, PT 03/26/2025 1:30 PM EST Treatment [facility] [address] [address] Masoud Abrams, PROBATION COUNSELOR 03/30/2025 1:30 PM EST Treatment [facility] [address] [phone] Sinan Fine, PROBATION COUNSELOR 04/02/2025 1:30 PM EST Treatment [facility] [address] [phone] Caio Allen, PT Scheduled Orders Name Type Priority Associated Diagnoses Orde r Schedule US Breast Limited bilat Imaging Routine Mammogram abnormal Expected: 02/05/2025, Expires: 02/05/2026 documented as of this encounter Visit Diagnoses Diagnosis Mammogram abnormal- Primary Abnormal mammogram, unspecified documented in this encounter Care Teams Elevating Grader Operator Relationship Specialty Start Date End Date Doretha Fraga MD [address] [phone] PCP - General Internal Medicine 02/22/18 documented as of this encounter
== END 2025-02-23 11:34 | disposition home or self-care (01) ==
LOC: HO.RHES 10:12
PROVIDERS: PCP Internal Medicine; Visit Provider Student in an Organized Health Care Education/Training Program
DX: M25.50 Pain in unspecified joint (principal); L40.9 Psoriasis, unspecified; Z79.52 Long term (current) use of systemic steroids
CPT/HCPCS: 99204

== ENCOUNTER 2025-02-23 10:12 | Outpatient (REF) | payer OTHER, SELFPAY ==
[2025-02-23 16:45] LABS: Thyroid Stimulating Hormone 1.02 uIU/mL (0.32-4.0)
[2025-02-24 03:58] LABS: HBS Num1 19.56 mIU/mL (0-7.99); HBc Num1 0.42 S/CO (0.00-0.79); HBsAGNum1 0.52 S/CO (0.00-0.99); Hepatitis B Surface Antigen Negative (Negative); ~HepC Num1 0.16 S/CO (0.00-0.79); ~Hepatitis B Surface Antibody REACTIVE (Nonreactive); ~Hepatitis C Antibody Nonreactive (Nonreactive)
[2025-02-25 06:20] LABS: Quantiferon TB Gold Plus 1 NEGATIVE (NEGATIVE); TB Test (QFT) Mitogen -Nil 7.31 IU/mL; TB Test (QFT) Nil 0.03 IU/mL; TB Test (QFT) Plus TB1 -Nil 0.00 IU/mL; TB Test (QFT) Plus TB2 -Nil 0.00 IU/mL
== END 2025-02-23 10:13 | disposition home or self-care (01) ==
LOC: HO.HKASLDS 10:12
PROVIDERS: PCP Internal Medicine; Visit Provider Student in an Organized Health Care Education/Training Program
DX: M25.50 Pain in unspecified joint (principal); L40.9 Psoriasis, unspecified; Z79.52 Long term (current) use of systemic steroids; R76.0 Raised antibody titer; Z79.899 Other long term (current) drug therapy; Z01.84 Encounter for antibody response examination; Z11.1 Encounter for screening for respiratory tuberculosis
CPT/HCPCS: 36415; 82784; 84165; 84443; 85652; 86140; 86200; 86334; 86376; 86431; 86480; 86704; 86706; 86800; 86803; 87340